=== PATIENT | female | born 1985 | race Caucasian/White ===

== ENCOUNTER 2016-10-19 21:44 | Emergency (ER) | payer OTHER ==
[~2016-10-19] VITALS: Ht 175.3 cm; Wt 154.1 kg
[2016-10-19] MEDS ORDERED: PREDNISONE20 MG PO (23:57)
[2016-10-19] MEDS ORDERED: FLEXERIL10 MG PO (23:58)
[2016-10-19] MEDS ORDERED: NAPROXEN500 MG PO (23:58)
[2016-10-20 00:14] VITALS: BP 142/89
== END 2016-10-20 00:17 | disposition home or self-care (01) ==
LOC: EME 21:44
DX: M54.16 Radiculopathy, lumbar region (principal)
CPT/HCPCS: 99281; 99283; J7512